=== PATIENT | male | born 1995 | race Caucasian/White ===

== ENCOUNTER 2020-12-04 10:38 | Emergency (ER) | payer SELFPAY ==
[~2020-12-04] VITALS: Ht 187.9 cm; Wt 108.9 kg
== END 2020-12-04 11:56 | disposition home or self-care (01) ==
LOC: ED 10:38
DX: S96.911A Strain of unspecified muscle and tendon at ankle and foot level, right foot, initial encounter (principal); X50.1XXA Overexertion from prolonged static or awkward postures, initial encounter; Y93.89 Activity, other specified; Y92.89 Other specified places as the place of occurrence of the external cause; Y99.8 Other external cause status

== ENCOUNTER 2024-11-10 03:23 | Emergency (ER) | payer SELFPAY ==
[2024-11-10] MEDS ORDERED: NAPROSYN500 MG PO (03:39)
[2024-11-10] MEDS ORDERED: TRAMADOL HCL50 MG PO (03:39)
[2024-11-10] MEDS ORDERED: CLINDAMYCIN HC300 MG PO (03:39)
[2024-11-10] MEDS ORDERED: CLINDAMYCIN HCL 300 MG CAPSULE PO ONE (03:40)
[2024-11-10] MEDS ORDERED: NAPROXEN 250 MG TAB PO ONE (03:40)
[2024-11-10] MEDS ORDERED: traMADol Hydrochloride 50 MG TAB PO ONE (03:40)
== END 2024-11-10 04:04 | disposition home or self-care (01) ==
LOC: ED 03:23
DX: K02.9 Dental caries, unspecified (principal); K04.7 Periapical abscess without sinus